=== PATIENT | female | born 1995 | race Caucasian/White ===

== ENCOUNTER 2020-09-30 22:41 | Emergency (ER) | payer SELFPAY ==
[2020-10-01 01:22] LABS: HEMOGLOBIN 12.8 gm/dl (12.3-15.3); RED BLOOD COUNT 4.55 M/UL (4.00-5.10); WHITE BLOOD COUNT 11.3 K/UL (4.5-11.0)
[2020-10-01 01:40] LABS: BUN/CREATININE RATIO 8 (0-10)
== END 2020-10-01 03:08 | disposition home or self-care (01) ==
LOC: ER1 22:41
PROVIDERS: Physician Assistant
DX: O99.891 Other specified diseases and conditions complicating pregnancy (principal); R11.0 Nausea; R42 Dizziness and giddiness; Z3A.01 Less than 8 weeks gestation of pregnancy
CPT/HCPCS: 80053; 81001; 84702; 84703; 85025; 96374; 99284; J2550; J7030

== ENCOUNTER 2021-04-19 05:01 | Inpatient (IN) | payer OTHER ==
[~2021-04-19] VITALS: Ht 172.7 cm; Wt 95.3 kg
[2021-04-19 07:14] LABS: HEMOGLOBIN 10.9 gm/dl (12.3-15.3); RED BLOOD COUNT 4.17 M/UL (4.00-5.10); WHITE BLOOD COUNT 8.4 K/UL (4.5-11.0)
== END 2021-04-19 09:10 | disposition home or self-care (01) | DRG 807 ==
LOC: OB 05:01
PROVIDERS: ADMIT Obstetrics & Gynecology
PROC: 10E0XZZ Delivery of Products of Conception, External Approach (ICD-10-PCS; principal; 2021-04-19)
PROC: 3E033VJ Introduction of Other Hormone into Peripheral Vein, Percutaneous Approach (ICD-10-PCS; 2021-04-19)
PROC: 4A1HXCZ Monitoring of Products of Conception, Cardiac Rate, External Approach (ICD-10-PCS; 2021-04-19)
DX: O34.40 Maternal care for other abnormalities of cervix, unspecified trimester (principal); Z37.0 Single live birth; Z3A.39 39 weeks gestation of pregnancy; Z20.822 Contact with and (suspected) exposure to COVID-19
CPT/HCPCS: 81001; 85025; J2590

== ENCOUNTER 2021-04-22 16:41 | Inpatient (IN) | payer OTHER ==
[~2021-04-22] VITALS: Ht 172.7 cm; Wt 96.6 kg
[2021-04-22 17:15] LABS: HEMOGLOBIN 11.7 gm/dl (12.3-15.3); RED BLOOD COUNT 4.51 M/UL (4.00-5.10); WHITE BLOOD COUNT 10.4 K/UL (4.5-11.0)
[2021-04-22 17:34] LABS: BUN/CREATININE RATIO 10 (0-10)
[2021-04-25 06:01] LABS: HEMOGLOBIN 8.5 gm/dl (12.3-15.3)
[2021-04-25] MEDS ORDERED: IBUPROFEN600 MG PO (12:04)
[2021-04-25] MEDS ORDERED: COLACE 100MG C100 MG PO (12:04)
[2021-04-25] MEDS ORDERED: IRON325 M1 PO (12:04)
== END 2021-04-26 15:56 | disposition home or self-care (01) | DRG 806 ==
LOC: GENOP 16:41 → OB 16:53
PROVIDERS: Obstetrics & Gynecology; ADMIT Obstetrics & Gynecology
PROC: 4A1HXCZ Monitoring of Products of Conception, Cardiac Rate, External Approach (ICD-10-PCS; 2021-04-22)
PROC: 10E0XZZ Delivery of Products of Conception, External Approach (ICD-10-PCS; principal; 2021-04-24)
PROC: 0KQM0ZZ Repair Perineum Muscle, Open Approach (ICD-10-PCS; 2021-04-24)
PROC: 10907ZC Drainage of Amniotic Fluid, Therapeutic from Products of Conception, Via Natural or Artificial Opening (ICD-10-PCS; 2021-04-24)
PROC: 3E033VJ Introduction of Other Hormone into Peripheral Vein, Percutaneous Approach (ICD-10-PCS; 2021-04-24)
PROC: 3E0234Z Introduction of Serum, Toxoid and Vaccine into Muscle, Percutaneous Approach (ICD-10-PCS; 2021-04-24)
PROC: 3E01340 Introduction of Influenza Vaccine into Subcutaneous Tissue, Percutaneous Approach (ICD-10-PCS; 2021-04-24)
DX: O70.1 Second degree perineal laceration during delivery (principal); D62 Acute posthemorrhagic anemia; Z37.0 Single live birth; Z3A.39 39 weeks gestation of pregnancy; O99.824 Streptococcus B carrier state complicating childbirth; Z20.822 Contact with and (suspected) exposure to COVID-19; O90.81 Anemia of the puerperium; O69.1XX0 Labor and delivery complicated by cord around neck, with compression, not applicable or unspecified; Z23 Encounter for immunization
CPT/HCPCS: 36415; 80053; 81001; 82570; 84156; 84550; 85014; 85018; 85025; 90471; 90686; 90715; J0290; J1580; J2210; J2405; J2590; J7120; J7121; U0002